=== PATIENT | female | born 2000 | race African-American/Black ===

== ENCOUNTER 2023-03-18 13:58 | Emergency (ER) | payer OTHER, MEDICAID ==
[~2023-03-18] VITALS: Ht 162.6 cm; Wt 75.0 kg
[2023-03-18] MEDS ORDERED: ACETAMINOPHEN 325MG TABLET PO ONE (14:45)
[2023-03-18] MEDS ORDERED: PYRIDOXINE HCL 50MG TABLET PO ONE (14:45)
[2023-03-18] MEDS ORDERED: SODIUM CHLORIDE 0.9% 1,000 ML IV ONE (14:45)
[2023-03-18] MEDS ORDERED: PYRIDOXINE HCL 50MG TABLET PO NR (15:15)
[2023-03-18 16:49] LABS: BASOPHILS % 0.6 % (0.0-2.0); EOSINOPHILS % 0.6 % (0.0-5.0); HEMATOCRIT. 38.8 % (36.0-48.0); HEMOGLOBIN. 12.9 g/dL (12.0-16.0); LYMPHOCYTES % 19.1 % (20.0-50.0); MEAN CORPUSCULAR HEMOGLOBIN 28.2 pg (28.0-32.0); MEAN CORPUSCULAR VOLUME 84.7 fL (81.0-99.0); MEAN PLATELET VOLUME 8.5 fl (7.4-10.4); MONOCYTES % 6.1 % (2.0-8.0); NEUTROPHILS % 73.6 % (40.0-76.0); PLATELET 293 x1000/uL (130-400); RED BLOOD CELL COUNT 4.58 mill/uL (4.2-5.4); RED CELL DISTRIBUTION WIDTH 14.3 % (11.6-14.6)
[2023-03-18 16:50] LABS: CLARITY URINE TURBID (CLEAR); COLOR URINE YELLOW (YELLOW); KETONES URINE NEGATIVE (NEGATIVE); LEUKOCYTE ESTERASE URINE NEGATIVE (NEGATIVE); NITRITE URINE NEGATIVE (NEGATIVE); OCCULT BLOOD URINE NEGATIVE (NEGATIVE); PROTEIN URINE TRACE (NEGATIVE); SPECIFIC GRAVITY URINE 1.023 (1.005-1.030); UROBILINOGEN URINE 0.2 E.U./dL (0.2-1.0)
[2023-03-18 17:00] LABS: CHLORIDE 106 mEq/L (98-107)
[2023-03-18 17:02] LABS: HCG SCREEN POSITIVE
[2023-03-18 17:22] LABS: B-HCG QUANTITATIVE 84210 mIU/mL (<3)
[2023-03-18] MEDS ORDERED: DOXY1TAB3 MT (17:30)
[2023-03-18 17:56] VITALS: BP 119/76
== END 2023-03-18 17:59 | disposition home or self-care (01) ==
LOC: ER 13:58
DX: O26.891 Other specified pregnancy related conditions, first trimester (principal); Z3A.08 8 weeks gestation of pregnancy
CPT/HCPCS: 36415; 76801; 76817; 80053; 81003; 81025; 83690; 84702; 84703; 85025; 86850; 86900; 86901; 96360; 99284; J7030

== ENCOUNTER 2024-03-04 04:14 | Emergency (ER) | payer OTHER ==
[~2024-03-04] VITALS: Ht 160 cm; Wt 52.0 kg
[~2024-03-04 04:14] MED LIST: DOXY1TAB3 MT
[2024-03-04 04:37] VITALS: O2SAT 99
[2024-03-04] MEDS: ACETAMINOPHEN 325MG TABLET PO ONE (05:30)
[2024-03-04] MEDS: LACTATED RINGERS 1,000 ML IV SCH (05:58)
[2024-03-04 06:10] LABS: BASOPHILS % 0.6 % (0.0-2.0); EOSINOPHILS % 0.3 % (0.0-5.0); HEMATOCRIT. 39.3 % (36.0-48.0); LYMPHOCYTES % 9.1 % (20.0-50.0); MEAN CORPUSCULAR HEMOGLOBIN 27.7 pg (28.0-32.0); MEAN CORPUSCULAR HGB CONC 33.1 g/dL (31.0-37.0); MEAN CORPUSCULAR VOLUME 83.7 fL (81.0-99.0); MEAN PLATELET VOLUME 8.2 fl (7.4-10.4); MONOCYTES % 11.7 % (2.0-8.0); NEUTROPHILS % 78.3 % (40.0-76.0); PLATELET 240 x1000/uL (130-400); RED BLOOD CELL COUNT 4.69 mill/uL (4.2-5.4); RED CELL DISTRIBUTION WIDTH 14.2 % (11.6-14.6); WHITE BLOOD COUNT 9.9 x1000/uL (4.5-11.0)
[2024-03-04 06:11] LABS: CARBON DIOXIDE 26 mEq/L (21-32); CHLORIDE 106 mEq/L (98-107); POTASSIUM 4.3 mEq/L (3.5-5.1); SODIUM 137 mEq/L (136-145)
[2024-03-04] MEDS: METOCLOPRAMIDE HCL 10MG/2ML VIAL IV ONE (06:12)
[2024-03-04 06:16] LABS: CREATININE 0.8 mg/dL (0.6-1.0)
[2024-03-04 06:17] LABS: GLUCOSE 104 mg/dL (70-105); UREA NITROGEN BLOOD 10 mg/dL (9-23)
[2024-03-04 06:18] LABS: ALANINE AMINOTRANSFERASE 50 IU/L (10-49); ALBUMIN 4.7 g/dL (3.2-4.8); ASPARTATE AMINOTRANSFERASE 51 IU/L (<34); HCG SCREEN NEGATIVE
[2024-03-04 06:19] LABS: BILIRUBIN TOTAL 0.9 mg/dL (0.1-1.0); PROTEIN TOTAL 7.5 g/dL (6.0-8.3)
[2024-03-04] MEDS: KETOROLAC 15MG/ML VIAL IV ONE (08:23)
[2024-03-04 10:19] VITALS: BP 118/76; PULSE 78; RESP 18; TEMP 97.8
== END 2024-03-04 10:18 | disposition home or self-care (01) ==
LOC: ER 04:14
DX: R51.9 Headache, unspecified (principal); B34.9 Viral infection, unspecified; R79.89 Other specified abnormal findings of blood chemistry
CPT/HCPCS: 99285; 96374; 96361; 70450; 96375; 80053; 84703; 85025; 36415; J1885; J2765

== ENCOUNTER 2024-04-18 22:39 | Emergency (ER) | payer OTHER ==
[~2024-04-18] VITALS: Ht 149.9 cm; Wt 34.0 kg
[2024-04-18 22:44] VITALS: O2SAT 99
[2024-04-18 23:25] LABS: EOSINOPHILS % 1.7 % (0.0-5.0); HEMATOCRIT. 37.6 % (36.0-48.0); HEMOGLOBIN. 12.4 g/dL (12.0-16.0); LYMPHOCYTES % 36.4 % (20.0-50.0); MEAN CORPUSCULAR HEMOGLOBIN 27.6 pg (28.0-32.0); MEAN CORPUSCULAR HGB CONC 33.1 g/dL (31.0-37.0); MEAN CORPUSCULAR VOLUME 83.3 fL (81.0-99.0); MEAN PLATELET VOLUME 8.3 fl (7.4-10.4); MONOCYTES % 7.3 % (2.0-8.0); NEUTROPHILS % 53.6 % (40.0-76.0); PLATELET 297 x1000/uL (130-400); RED BLOOD CELL COUNT 4.51 mill/uL (4.2-5.4); RED CELL DISTRIBUTION WIDTH 14.4 % (11.6-14.6); WHITE BLOOD COUNT 6.8 x1000/uL (4.5-11.0)
[2024-04-18 23:40] LABS: CARBON DIOXIDE 25 mEq/L (21-32); CHLORIDE 108 mEq/L (98-107); POTASSIUM 3.6 mEq/L (3.5-5.1); SODIUM 139 mEq/L (136-145)
[2024-04-18 23:45] LABS: CREATININE 0.7 mg/dL (0.6-1.0); GLUCOSE 120 mg/dL (70-105); HCG SCREEN NEGATIVE
[2024-04-18 23:46] LABS: UREA NITROGEN BLOOD 7 mg/dL (9-23)
[2024-04-18 23:47] LABS: ALANINE AMINOTRANSFERASE 14 IU/L (10-49); ASPARTATE AMINOTRANSFERASE 25 IU/L (<34)
[2024-04-18 23:48] LABS: ALBUMIN 4.6 g/dL (3.2-4.8); BILIRUBIN DIRECT 0.2 mg/dL (<=3.0); BILIRUBIN TOTAL 0.7 mg/dL (0.1-1.0)
[2024-04-18 23:59] LABS: TROPONIN I HIGH SENSITIVITY < 4 ng/L (3.0-34)
[2024-04-19 00:25] VITALS: BP 110/73; PULSE 98; RESP 16; TEMP 97.8
== END 2024-04-19 00:30 | disposition home or self-care (01) ==
LOC: ER 22:39
DX: R07.89 Other chest pain (principal); R06.2 Wheezing
CPT/HCPCS: 36415; 71045; 80048; 80076; 84484; 84703; 85025; 85379; 93005; 99285